=== PATIENT | female | born 1955 | race Caucasian/White ===

== ENCOUNTER 2016-10-05 15:03 | Emergency (ER) | payer OTHER ==
--- NOTE | 2016-10-05 15:40 | UC ---
Lower Extremity/Ankle HPI - HPI Summary HPI Summary: 61 YEAR OLD FEMALE PRESENTS WITH LEFT KNEE PAIN. - History of Current Complaint Stated Complaint: LEFT LEG PAIN Time Seen by Provider: 10/05/16 15:38 Onset/Duration: Sudden Onset Severity Initially: Moderate Severity Currently: Moderate Pain Scale Used: 0-10 Numeric - 6 Aggravating Factor(s): Standing Alleviating Factor(s): Rest - Allergies/Home Medications Allergies/Adverse Reactions: Allergies Allergy/AdvReac Type Severity Reaction Status Date / Time No Known Allergies Allergy Verified 10/05/16 15:42 Home Medications: Home Medications Ibuprofen TAB* [Motrin TAB* 600 MG] 600 mg PO Q6H PRN 10/05/16 [History Confirmed 10/05/16] Lovastatin [Altoprev] 20 mg PO DAILY 10/05/16 [History Confirmed 10/05/16] Multivitamins/Minerals TAB* [Thera M Plus TAB*] 1 tab PO DAILY 10/05/16 [ History Confirmed 10/05/16] [place]-3 Fatty Acids [Fish Oil] 1,200 mg PO DAILY 10/05/16 [History Confirmed ] Vitamin E CAP* 200 unit PO DAILY 10/05/16 [History Confirmed 10/05/16] PMH/Surg Hx/FS Hx/Imm Hx - Social History Alcohol Use: Daily Alcohol Amount: 2 glasses of wine Substance Use Type: None Smoking Status (MU): Never Smoked Tobacco Review of Systems Constitutional: Negative Skin: Negative Eyes: Negative ENT: Negative Respiratory: Negative Cardiovascular: Negative Gastrointestinal: Negative Genitourinary: Negative Motor: Negative Neurovascular: Negative Musculoskeletal: Decreased ROM, Other: - LEFT KNEE PAIN Neurological: Negative Psychological: Negative All Other Systems Reviewed And Are Negative: Yes Physical Exam Triage Information Reviewed: Yes Eye Exam: Normal ENT Exam: Normal Dental Exam: Normal Neck exam: Normal Neck: Positive: 1 Respiratory Exam: Normal Cardiovascular Exam: Normal Abdominal Exam: Normal Musculoskeletal: Positive: Other: - LEFT KNEE PAIN Neurological Exam: Normal Psychological Exam: Normal Skin Exam: Normal Lower Extremity Course/Dx - Differential Dx/Diagnosis Provider Diagnoses: LEFT KNEE PAIN Discharge - Discharge Plan Condition: Stable Disposition: HOME Prescriptions: Meloxicam [Mobic] 7.5 mg PO BID PC #30 tab Patient Education Materials: Knee Pain (ED), Swollen Joint (ED) Referrals: Kwame Huerta MD [Primary Care Provider] -
[2016-10-05 15:42] VITALS: BP 157/72
--- NOTE | 2016-10-05 16:12 | RAD ---
HISTORY: Left knee swelling COMPARISONS: None VIEWS: 4, Frontal, lateral, axial, and oblique views of the left knee FINDINGS: BONE DENSITY: Normal. BONES: There is no displaced fracture. JOINTS: There is no arthropathy. There is no suprapatellar joint effusion or lipohemarthrosis. ALIGNMENT: There is no dislocation. SOFT TISSUES: Unremarkable. OTHER FINDINGS: None. IMPRESSION: NO ACUTE OSSEOUS INJURY. IF SYMPTOMS PERSIST, RECOMMEND REPEAT IMAGING.
== END 2016-10-05 16:30 | disposition home or self-care (01) ==
LOC: UCCORT 15:03
DX: M25.562 Pain in left knee (principal)
CPT/HCPCS: 99211; G0463

== ENCOUNTER 2017-05-30 07:33 | Emergency (ER) | payer OTHER ==
[2017-05-30 08:17] LABS: ABS Basophils 0.1 10^3/ul (0-0.2); ABS Eosinophils 0.2 10^3/ul (0-0.6); ABS Lymphocytes 1.8 10^3/ul (1.0-4.8); ABS Monocytes 0.3 10^3/ul (0-0.8); ABS Neutrophils 2.2 10^3/ul (1.5-7.7); ABS Nucleated RBC 0 10^3/ul; Hematocrit 38 % (35-47); Hemoglobin 12.7 g/dl (12.0-16.0); Mean Corpuscular HGB Conc 34 g/dl (31-36); Mean Corpuscular Hemoglobin 30 pg (27-31); Mean Corpuscular Volume 89 fL (80-97); Mean Platelet Volume 9.2 um3 (7.4-10.4); Nucleated Red Blood Cells % 0.1; Platelet Count 188 10^3/ul (150-450); Red Blood Count 4.23 10^6/ul (4.0-5.4); Red Cell Distribution Width 14 % (10.5-15); White Blood Count 4.5 10^3/ul (3.5-10.8)
[2017-05-30 08:39] LABS: EGFR Non-African American 66.6 (>60)
--- NOTE | 2017-05-30 08:52 | RAD ---
INDICATION: Dizziness COMPARISON: None. TECHNIQUE: Contiguous axial sections of the brain were obtained from the skull base to the vertex without contrast. FINDINGS: The ventricles, cisterns and sulci are within normal limits. The miranda-white matter differentiation is adequately maintained and there is no sulcal effacement. No significant focal abnormality or mass effect is present. There is no evidence for intracranial hemorrhage. No significant focal osseous abnormality is present. The visualized portion of the paranasal sinuses appear clear. The mastoid air cells are well aerated bilaterally. IMPRESSION: Normal CT of the brain.
--- NOTE | 2017-05-30 08:52 | RAD ---
INDICATION: Dizziness. COMPARISON: There are no prior studies available for comparison. TECHNIQUE: Dual-energy PA and lateral views of the chest were obtained. FINDINGS: The heart is within normal limits in size. Mediastinal and hilar contours appear within normal limits. The lungs are underinflated and clear. No pleural effusion is seen. IMPRESSION: NO EVIDENCE FOR ACTIVE CARDIOPULMONARY DISEASE.
[2017-05-30 09:43] VITALS: BP 126/68
[2017-05-30 10:02] LABS: Urine Appearance Clear; Urine Blood Negative (Negative); Urine Color Straw; Urine Ketones Negative (Negative); Urine Protein Negative (Negative); Urine Specific Gravity 1.005 (1.010-1.030); Urine Urobilinogen Negative (Negative)
--- NOTE | 2017-05-31 11:58 | ED ---
Sixto Hernandez Angela, scribed for Lloyd Izaguirre MD on 05/30/17 at 0824 . Dizziness - HPI Summary HPI Summary: This pt is a 61 y/o female presenting to [facility] via EMS for general malaise and lightheadedness for the past couple of weeks now. Pt reports she got up this morning and felt she was "pulling to the left" unable to walk straight. While at work today pt notes she felt lightheadedness and felt like she was rocking back and forth. She states she could feel getting slower and notes "it took me longer to do things." Pt additionally reports she has "no energy." Denies SOB, cough, nausea, vomiting. Pt has been seen Dr. Huerta (her PCP) and a malthouse laborer at [facility]. Pt had a brain CT 2 weeks ago and is scheduled to have a stress test on . Pt was diagnosed with vertigo and fluid in her ears 2 weeks ago, she states she was given a nasal spray. Pt had a knee replacement done in 2016. - History Of Current Complaint Chief Complaint: EDWeakness Stated Complaint: GENERAL Hx Obtained From: Patient Onset/Duration: Still Present Timing: Days Severity Currently: Moderate Character: Lightheaded Aggravating Factor(s): Nothing Alleviating Factor(s): Nothing Associated Signs And Symptoms: Negative: Nausea, Vomiting, SOB - Allergies/Home Medications Allergies/Adverse Reactions: Allergies Allergy/AdvReac Type Severity Reaction Status Date / Time No Known Allergies Allergy Verified 05/30/17 07:43 Home Medications: Home Medications Cholecalciferol TAB* [Vitamin D TAB*] 1,000 unit PO DAILY 05/30/17 [History Confirmed 05/30/17] Cyanocobalamin TAB* [Vitamin B12 TAB*] 500 mcg PO DAILY 05/30/17 [History Confirmed 05/30/17] Meloxicam(NF) [Mobic(NF)] 7.5 mg PO BID PC 05/30/17 [History Confirmed 05/30/17] [place]-3 Fatty Acids (Nf) [Fish Oil (NF)] 1,000 mg PO DAILY 05/30/17 [History Confirmed 05/30/17] Pantoprazole TAB (NF) [Protonix TAB (NF)] 40 mg PO DAILY 05/30/17 [History Confirmed 05/30/17] Rosuvastatin (NF) [Crestor (NF)] 10 mg PO DAILY 05/30/17 [History Confirmed 01/06] PMH/Surg Hx/FS Hx/Imm Hx Endocrine/Hematology History: Denies: Hx Diabetes Cardiovascular History: Reports: Other Cardiovascular Problems/Disorders - high cholesterol Denies: Hx Hypertension - Surgical History Surgery Procedure, Year, and Place: Hysterectomy. Left knee replacement Infectious Disease History: No Infectious Disease History: Denies: Traveled Outside the [place] in Last 30 Days - Family History Known Family History: Positive: Respiratory Disease - COPD Family History: cerebral aneurysm - Social History Alcohol Use: Daily Alcohol Amount: 2 glasses of wine Substance Use Type: Reports: None Smoking Status (MU): Never Smoked Tobacco Review of Systems Constitutional: Other - no energy Positive: Fatigue. Negative: Fever, Chills Negative: Shortness Of Breath, Cough Negative: Vomiting, Nausea Neurological: Other - POS: lightheadedness All Other Systems Reviewed And Are Negative: Yes Physical Exam - Summary Physical Exam Summary: VITAL SIGNS: Reviewed. GENERAL: Patient is a well-developed and nourished female who is lying comfortable in the stretcher. Patient is not in any acute respiratory distress. HEAD AND FACE: No signs of trauma. No ecchymosis, hematomas or skull depressions. No sinus tenderness. EYES: PERRLA, EOMI x 2, No injected conjunctiva, no nystagmus. EARS: Hearing grossly intact. Ear canals and tympanic membranes are within normal limits. MOUTH: Oropharynx within normal limits. NECK: Supple, trachea is midline, no adenopathy, no JVD, no carotid bruit, no c- spine tenderness, neck with full ROM. CHEST: Symmetric, no tenderness at palpation LUNGS: Clear to auscultation bilaterally. No wheezing or crackles. CVS: Regular rate and rhythm, S1 and S2 present, no murmurs or gallops appreciated. ABDOMEN: Soft, non-tender. No signs of distention. No rebound no guarding, and no masses palpated. Bowel sounds are normal. EXTREMITIES: FROM in all major joints, no edema, no cyanosis or clubbing. NEURO: Alert and oriented x 3. No acute neurological deficits. Speech is normal and follows commands. SKIN: Dry and warm GCS: 15 Triage Information Reviewed: Yes Vital Signs On Initial Exam: Initial Vitals Temp Pulse Resp BP Pulse Ox 97.8 F 77 15 141/86 99 05/30/17 07:36 05/30/17 07:36 05/30/17 07:36 05/30/17 07:36 05/30/17 07:36 Vital Signs Reviewed: Yes Diagnostics - Vital Signs Vital Signs Temp Pulse Resp BP Pulse Ox 05/30/17 08:07 80 151/93 05/30/17 07:46 84 98 05/30/17 07:45 142/83 05/30/17 07:36 97.8 F 77 15 141/86 99 - Laboratory Lab Results: Lab Results 05/30/17 Range/Units 08:02 WBC 4.5 (3.5-10.8) 10^3/ul RBC 4.23 (4.0-5.4) 10^6/ul Hgb 12.7 (12.0-16.0) g/dl Hct 38 (35-47) % MCV 89 (80-97) fL MCH 30 (27-31) pg MCHC 34 (31-36) g/dl RDW 14 (10.5-15) % Plt Count 188 (150-450) 10^3/ul MPV 9.2 (7.4-10.4) um3 Neut % (Auto) 48.5 (38-83) % Lymph % (Auto) 40.0 (25-47) % [place] % (Auto) 6.4 (0-7) % Eos % (Auto) 4.0 (0-6) % Baso % (Auto) 1.1 (0-2) % Absolute Neuts (auto) 2.2 (1.5-7.7) 10^3/ul Absolute Lymphs (auto) 1.8 (1.0-4.8) 10^3/ul Absolute Monos (auto) 0.3 (0-0.8) 10^3/ul Absolute Eos (auto) 0.2 (0-0.6) 10^3/ul Absolute Basos (auto) 0.1 (0-0.2) 10^3/ul Absolute Nucleated RBC 0 10^3/ul Nucleated RBC % 0.1 Result Diagrams: 05/30/17 08:02 05/30/17 08:02 Lab Statement: Any lab studies that have been ordered have been reviewed, and results considered in the medical decision making process. - Radiology Chest XR Xray Interpretation: No Acute Changes - IMPRESSION: No evidence for active cardiopulmonary disease. Dr. Izaguirre has reviewed this radiology report. Radiology Interpretation Completed By: Radiologist - CT Brain CT CT Interpretation: No Acute Changes - IMPRESSION: Normal CT of the brain. Dr. Izaguirre has reviewed this radiology report. CT Interpretation Completed By: Radiologist - EKG 08:13 Cardiac Rate: NL EKG Rhythm: Sinus Rhythm - at 74 bpm EKG Interpretation: No ST elevations. Re-Evaluation - Re-Evaluation First Eval Re-Evaluation Time: 09:39 Comment: I reviewed the labs, XR, and CT with the pt. Pt will be discharged home. Dizzy Course/Dx - Course Assessment/Plan: This pt is a 61 y/o female presenting to [facility] via EMS for general malaise and lightheadedness for the past couple of weeks now. Pt reports she got up this morning and felt she was "pulling to the left" unable to walk straight. While at work today pt notes she felt lightheadedness and felt like she was rocking back and forth. She states she could feel getting slower and notes "it took me longer to do things." Pt additionally reports she has "no energy." Denies SOB, cough, nausea, vomiting. Pt has been seen Dr. Huerta and a malthouse laborer at [facility]. Pt had a brain CT 2 weeks ago and is scheduled to have a stress test on 06/04/17. Pt was diagnosed with vertigo and fluid in her ears 2 weeks ago, she states she was given a nasal spray. Pt had a knee replacement done in 2016. Test results without any significant abnormalities except for 113. Urinalysis is negative for UTI. Serum alcohol is negative. Chest XR: No evidence for active cardiopulmonary disease. Brain CT shows normal CT of the brain. Therefore she will be discharged to home with follow up from her PCP. Pt was given a prescription for Antivert for vertigo. She was also given a work note for 2 days. I discussed all the findings and test results with the patient. All questions were answered to patient satisfaction. There were no further complaints or concerns. She is instructed to return to the ED for any worsening or new symptoms. Pt is hemodynamically stable, alert and oriented x3. - Diagnoses Provider Diagnoses: Vertigo Discharge - Sign-Out/Discharge Documenting (check all that apply): Discharge - discharge to home - Discharge Plan Condition: Stable Disposition: HOME Prescriptions: Meclizine TAB* [Antivert 12.5 TAB*] 25 mg PO TID PRN #30 tab PRN Reason: Vertigo Patient Education Materials: Vertigo (ED) Forms: *Work Release Referrals: Kwame Huerta MD [Primary Care Provider] - 3 Days Additional Instructions: Please follow up with your primary care provider. RETURN TO THE ED FOR ANY NEW OR WORSENING SYMPTOMS. The documentation as recorded by the Sixto chaudhary Angela accurately reflects the service I personally performed and the decisions made by Dmitriy cota Walter, MD.
== END 2017-05-30 09:46 | disposition home or self-care (01) ==
LOC: ED 07:33
DX: R42 Dizziness and giddiness (principal); E78.00 Pure hypercholesterolemia, unspecified; Z96.652 Presence of left artificial knee joint
CPT/HCPCS: 36415; 70450; 71046; 80053; 80320; 81003; 82550; 83605; 83735; 83880; 84443; 84484; 85025; 86140; 93005; 99283; G0480

== ENCOUNTER → 2018-11-28 06:42 | Day surgery (SDC) | payer OTHER ==
[~2018-11-28 06:42] MED LIST: Acetaminophen TAB* 325 MG ONE; Acetaminophen TAB* 325 MG PO PRN; Buffered Lidocaine 1% SYRIN* 1 ML/SYRINGE INTRADERM ONE; Bupivacaine 0.5%* 50 ML MDV VIAL ONE; Dexamethasone IV* 4 MG/ML 1 ML (4 MG) ONE; DiMENhydriNATE IV* 50 MG/ML VIAL IV PUSH PRN; Ketorolac INJ* 30 MG/ML 1 ML VIAL ONE; Lactated Ringers 1000 ML Bag* 1,000 ML IV SCH; Lidocaine 2% PF * 5 ML VIAL ONE; Metoclopramide IV* 5 MG/ML 2 ML VIAL ONE; Midazolam* 1 MG/ML 2 ML VIAL (2 MG) ONE; Naloxone* 0.4 MG/ML 1 ML VIAL IV PRN; Ondansetron INJ* 2 MG/ML VIAL ONE; Propofol* 10 MG/ML 20 ML BTL ONE; ceFAZolin 2 GM PREMIX in ORs 2 GM/50 ML BAG ONE; fentaNYL* 50 MCG/ML 2 ML VIAL (100 MCG VIAL) ONE; oxyCODONE TAB* 5 MG TAB ONE; oxyCODONE TAB* 5 MG TAB PO PRN
--- NOTE | 2018-11-28 11:00 | OP ---
Operative Report - Blank - Operative Report Date of Operation: 11/28/18 Note: PATIENT: Marie Farias DATE OF : 1955 DATE OF SURGERY: 11/28/2018 SURGEON: Gabriel Covarrubias MD COOK CANDY: JUNI Luo, whos assistance was necessary for positioning, retraction, help with instrumentation, and closure. ANESTHESIOLOGIST: Dr. Sky PREOPERATIVE DIAGNOSIS: Left knee lateral meniscus tear POSTOPERATIVE DIAGNOSIS: Left knee horizontal lateral meniscus tear OPERATION: Left knee arthroscopy with partial lateral meniscectomy ANESTHESIA: General IMPLANTS: none TOURNIQUET TIME: Less than one hour, with a well-padded thigh tourniquet at 250 mmHg. SPECIMENS: None ESTIMATED BLOOD LOSS: minimal COMPLICATIONS: none STATUS: Stable from the operating room to the recovery room and then home. INDICATIONS FOR PROCEDURE: Marie has had pain and mechanical symptoms at her left knee. Both operative and non operative treatment alternatives were reviewed. Further, the nature and risks of surgery were reviewed in careful detail, in the office as well as the pre-operative holding area. Our discussions regarding the risks of surgery included, but were not limited to, infection, wound problems, nerve injury, neuroma, RSD, persistent symptoms, blood clot, failure of the surgery, need for further surgery, development of arthritis, and even the remote chance of catastrophic complication, including loss of limb. DESCRIPTION OF PROCEDURE: The patient was seen in the preoperative holding unit and informed written consent was obtained. The appropriate extremity was marked. The patient was then brought to the operating room and carefully positioned on the operating room table. Anesthesia was induced. All bony prominences were padded with great care. A well-padded thigh tourniquet was placed. A chlorhexidine based pre- scrub was performed followed by a chloraprep prep and drape in standard sterile fashion. A surgical safety pause was then conducted in which we confirmed the appropriate patient, extremity, planned procedure, availability of equipment, indication and administration of prophylactic antibiotics, and DVT prophylaxis in the form of a compression boot on the non-surgical extremity. I began with an Esmarch exsanguination of the limb and inflated the tourniquet. I insufflated the joint by injecting sterile saline. I began by making a standard anterolateral knee arthroscopy portal. The arthroscope was inserted into the knee joint and a diagnostic arthroscopy was performed. Then under direct visualization an anteromedial arthroscopy portal was made. I introduced a probe into the joint. This was used to probe the horizontal lateral meniscus tear. A biter and oscillating shaver were used to debride the meniscal tear back to a stable rim. I then performed an extensive irrigation of the joint while running the shaver in each of the knee compartments to remove any loose debris. Once thoroughly irrigated and debrided , I suctioned the fluid out of the joint. The arthroscopy portals were then closed utilizing 3-0 nylon. A sterile dressing was then applied. The patient was then awakened from anesthesia and transferred to the recovery room in stable condition. There were no complications. All needle and sponge counts were correct at the end of the case. ATTESTATION: I attest I was present and scrubbed and performed the critical portions of the procedure myself. POSTOPERATIVE PLAN: The plan is for weight-bearing as tolerated with crutches. Follow-up will be in 2 weeks for likely suture removal.
[2018-11-28] MEDS: fentaNYL* 50 MCG/ML 2 ML VIAL (100 MCG VIAL) IV PRN ×2 (11:05→11:15)
[2018-11-28 13:07] VITALS: BP 116/69
== END | disposition home or self-care (01) ==
LOC: OR 06:42
PROVIDERS: ATTEND Orthopaedic Surgery
DX: S83.282A Other tear of lateral meniscus, current injury, left knee, initial encounter (principal); X58.XXXA Exposure to other specified factors, initial encounter; Y92.9 Unspecified place or not applicable; K21.9 Gastro-esophageal reflux disease without esophagitis; M19.90 Unspecified osteoarthritis, unspecified site; R25.1 Tremor, unspecified; E78.5 Hyperlipidemia, unspecified
CPT/HCPCS: A9270-GY; J0690; J1100; J1885; J2250; J2405; J2704; J2765; J3010; J3490